=== PATIENT | male | born 1970 | race African-American/Black ===

== ENCOUNTER 2017-07-27 00:04 | Emergency (ER) | payer MEDICAID ==
[~2017-07-27] VITALS: Ht 165.1 cm; Wt 68.0 kg
[~2017-07-27 00:04] MED LIST: ATEN50TA OR; CINA60TA OR; CLON0.5T3 OR; ENAL-3 OR; MYCO360T OR; PERCOT; POTATAB OR; PREDPOW63 PO; TACR1CAP4 OR; [UNRECOGNIZED DRUG - OTHER] PO
[2017-07-27] MEDS ORDERED: LORazepam 2MG/ML-1ML VIAL IV ONE (00:15)
[2017-07-27 00:18] LABS: Urine RBC None Seen /hpf (0 - 3)
[2017-07-27 00:31] LABS: Basophils # (auto) 0 uL; Basophils % (auto) 0.3 % (0.0-2.0); Eosinophils # (auto) 0 uL; Eosinophils % (auto) 0.1 % (0.0-7.0); Hematocrit 43.2 % (41.0-53.0); Hemoglobin 13.8 g/dL (13.5-17.5); Lymphocytes # (auto) 1.5 uL; Lymphocytes % (auto) 16.1 % (10.0-50.0); Mean Corpuscular Hemoglobin 28.7 pg (28.0-32.0); Mean Corpuscular Hgb Conc. 31.9 g/dL (32.0-36.0); Mean Corpuscular Volume 90.1 fL (80.0-100.0); Mean Platelet Volume 7.8 fL (7.4-10.4); Monocytes # (auto) 0.5 uL; Monocytes % (auto) 5.5 % (0.0-12.0); Neutrophils # (auto) 7.2 uL; Platelet Count (auto) 299 10^3/uL (140-450); Red Cell Distribution Width 15.4 % (11.6-16.0); White Blood Cell 9.3 10^3/uL (4.4-10.8)
[2017-07-27 00:43] LABS: Albumin 4.2 g/dL (3.4-5.0); Anion Gap 14 (5-15); BUN/Creatinine Ratio 10.3; Blood Urea Nitrogen 23 mg/dL (7-18); Calcium 9.9 mg/dL (8.5-10.1); Carbon Dioxide 19 mmol/L (21-32); Chloride 114 mmol/L (98-107); GFR African American 41 mL/min; GFR Non-African American 34 mL/min; Glucose 96 mg/dL (74-106); Potassium 4.5 mmol/L (3.5-5.1); Sodium 147 mmol/L (136-145)
[2017-07-27 00:48] LABS: Alkaline Phosphatase 68 U/L (45-117); Aspartate Aminotransferase 24 U/L (15-37); Bilirubin, Total 0.3 mg/dL (0.2-1.0); Total Protein 8.4 g/dL (6.4-8.2)
[2017-07-27 01:01] LABS: Urine Bilirubin Negative (Negative); Urine Blood Negative /uL (Negative); Urine Color Yellow (Yellow); Urine Glucose Normal (Normal); Urine Ketone Negative (Negative); Urine Nitrite Negative (Negative); Urine Urobilinogen Normal (Negative)
[2017-07-27 01:05] LABS: Magnesium 2.9 mg/dL (1.6-2.6)
[2017-07-27 01:53] LABS: INR 0.93 (0.9-1.15); Prothrombin Time 10.1 sec (9.37-12.3)
[2017-07-27 03:20] LABS: Partial Thromboplastin Time 22.8 sec (22.64-33.71)
[2017-07-27 05:30] VITALS: BP 127/88
[2017-07-27] MEDS ORDERED: THIAMINE INJ 100 MG, MULTIPLE VITAMIN 10 ML, FOLIC ACID 1 MG, MAGNESIUM SULF SDV 50% 8 ... IV SCH ×5 (12:00)
== END 2017-07-27 07:01 | disposition home or self-care (01) ==
LOC: ER 00:04
DX: R41.82 Altered mental status, unspecified (principal); G92 Toxic encephalopathy; F10.129 Alcohol abuse with intoxication, unspecified; R45.1 Restlessness and agitation; F12.10 Cannabis abuse, uncomplicated; I12.0 Hypertensive chronic kidney disease with stage 5 chronic kidney disease or end stage renal disease; N18.6 End stage renal disease; Z99.2 Dependence on renal dialysis; Z88.0 Allergy status to penicillin; Y90.8 Blood alcohol level of 240 mg/100 ml or more
CPT/HCPCS: 36415; 51702; 70450; 71010; 72125; 80053; 80307; 80320; 81001; 83735; 84484; 85025; 85610; 85730; 94761; 96374; 99285; J0171